=== PATIENT | male | born 1995 | race Caucasian/White ===

== ENCOUNTER 2020-12-30 20:39 | Emergency (ER) | payer OTHER, SELFPAY ==
[2020-12-30] MEDS ORDERED: Lorazepam 2 MG/ML VIAL ONE (21:34)
[2020-12-30] MEDS ORDERED: Ketorolac Tromethamine 30 MG/ML VIAL ONE (21:34)
[2020-12-30 21:56] LABS: ALT (SGPT) 37 U/L (8-55); AST (SGOT) 21 U/L (5-34); Albumin 4.6 g/dL (3.5-5.0); Alkaline Phosphatase 50 U/L (40-110); Anion Gap 14 mmol/L (10-20); BUN (Urea Nitrogen) 17 mg/dL (8.9-20.6); Bilirubin, Total 0.5 mg/dL (0.2-1.2); Calc. Creatinine Clearance 0 mL/min (70-130); Calcium 9.6 mg/dL (7.8-10.44); Carbon Dioxide 25 mmol/L (22-29); Chloride 102 mmol/L (98-107); Globulin 2.7 g/dL (2.4-3.5); Glucose 198 mg/dL (70-105); Lipase 44 U/L (8-78); Magnesium 1.8 mg/dL (1.6-2.6); Potassium 3.9 mmol/L (3.5-5.1); Protein, Total 7.3 g/dL (6.0-8.3); Sodium 137 mmol/L (136-145)
[2020-12-30 22:04] LABS: Hemoglobin 15.5 g/dL (14.0-18.0); Mean Corpuscular HGB CONC 34.8 g/dL (32.0-36.0); Mean Platelet Volume 8.6 fL (7.4-10.4); Platelet Count 170 thou/uL (130-400); RBC Distribution Width 11.5 % (11.5-14.5); Red Blood Cell (RBC) Count 5.16 mill/uL (4.70-6.10); White Blood Cell (WBC) Count 5.8 thou/uL (4.8-10.8)
[2020-12-30 22:05] LABS: Band 1 % (5-11); Eosinophils 1 % (0-10); Lymphocytes 64 % (21-51); MDiff Complete? YES; Monocytes 3 % (0-10); Neutrophil 30 % (42-75)
[2020-12-30 23:53] LABS: Troponin I Less than 0.010 ng/mL (< 0.028)
== END 2020-12-31 00:14 | disposition home or self-care (01) ==
LOC: ERS 20:39
DX: R07.89 Other chest pain (principal)
CPT/HCPCS: 36416; 71045; 80053; 83690; 83735; 84484; 85025; 85379; 93005; 96374; 96375; J1885; J2060